=== PATIENT | female | born 1960 | race Caucasian/White ===

== ENCOUNTER 2017-10-04 13:16 | Emergency (ER) | payer BC, OTHER ==
--- NOTE | 2017-10-04 13:46 | RAD ---
FOUR VIEWS RIGHT KNEE: Comparison: None. History: Fall with right knee pain. FINDINGS: Four views of the right knee shows no evidence of acute fracture or dislocation. Moderate tricompartm ental osteophyte formation and joint space narrowing is consistent with osteoarthritis. No knee effus ion is seen. IMPRESSION: Moderate right knee osteoarthritis without acute osseous abnormality. POS: [facility]
[2017-10-04] MEDS ORDERED: Ibuprofen 200 MG TAB ONE (14:14)
== END 2017-10-04 14:39 | disposition home or self-care (01) ==
LOC: ERS 13:16
DX: S80.01XA Contusion of right knee, initial encounter (principal); E11.9 Type 2 diabetes mellitus without complications; E78.5 Hyperlipidemia, unspecified; I10 Essential (primary) hypertension; F32.9 Major depressive disorder, single episode, unspecified; Z79.82 Long term (current) use of aspirin; Z79.899 Other long term (current) drug therapy; W19.XXXA Unspecified fall, initial encounter

== ENCOUNTER 2017-11-26 17:01 | Emergency (ER) | payer OTHER ==
--- NOTE | 2017-11-26 17:41 | RAD ---
FOUR VIEWS OF THE RIGHT KNEE: 11/26/17 COMPARISON: 10/04/17. HISTORY: Right knee pain after turning funny in a tanning bed and hearing a pop. FINDINGS: Four views of the right knee shows no evidence of acute fracture or dislocation. Mild to moderate tri compartmental joint space narrowing and osteophyte formation is seen consistent with osteoarthritis. There is a bipartite patella unchanged compared to the prior exam. No knee effusion is seen. Mild sof t tissue swelling is seen. IMPRESSION: Moderate right knee osteoarthritis without acute osseous abnormality. POS: [facility]
== END 2017-11-26 19:08 | disposition home or self-care (01) ==
LOC: ERS 17:01
DX: M25.561 Pain in right knee (principal); E11.9 Type 2 diabetes mellitus without complications; E78.5 Hyperlipidemia, unspecified; F32.9 Major depressive disorder, single episode, unspecified; I10 Essential (primary) hypertension

== ENCOUNTER 2019-02-19 07:32 | Outpatient (CLI) | payer OTHER ==
--- NOTE | 2019-02-19 08:26 | ULT ---
RENAL ULTRASOUND: DATE: 02/19/2019. PROVIDED CLINICAL HISTORY: Chronic kidney disease. FINDINGS: The right kidney measures about 10 x 5 x 4.5 cm and demonstrates no evidence for hydronephrosis or ma ss. Fatty infiltration of the liver is partially visualized. The left kidney measures about 10.2 x 5 x 4.6 cm and demonstrates no evidence for hydronephrosis or m ass. The urinary bladder appears sonographically unremarkable. IMPRESSION: 1. No evidence for hydronephrosis. 2. Fatty infiltration of the liver. POS: [facility]
== END 2019-02-19 07:33 | disposition home or self-care (01) ==
LOC: BICULT 07:32
PROVIDERS: ATTEND Internal Medicine Nephrology
DX: N18.3 Chronic kidney disease, stage 3 (moderate) (principal); K76.0 Fatty (change of) liver, not elsewhere classified
CPT/HCPCS: 76770